=== PATIENT | male | born 1990 | race Caucasian/White ===

== ENCOUNTER 2023-12-20 19:44 | Emergency (ER) | payer OTHER, SELFPAY ==
[2023-12-20 19:48] VITALS: BP 149/115; PULSE 120; RESP 16; TEMP 36.9; O2SAT 98
--- NOTE | 2023-12-20 20:17 | ED.GENADUL_ITS ---
Discharge Plan Discharge Details Chief Complaint: Anxiety ED Provider: Gloria Gutierrez Home Meds and New Rx's Prescriptions: No Action aripiprazole [Abilify] 20 mg tablet 20 mg PO DAILY divalproex [Depakote] 500 mg tablet,delayed release (DR/EC) 500 mg PO BID Viagra 25 mg PO QWEEK [facility] General Mode of arrival: ambulatory . Date/Time Provider Initiated Documentation: 12/20/23 19:45 . Limitations to Documentation: no limitations . Information obtained by: patient, RN notes reviewed and old records reviewed . HPI Narrative: 33 year old male who presents to ED accompanyied by Police who is requesting medications, he reports he needs his depakote which he has been off of for over a week. He reports he was speeding and is displaying manic behaviors. He denies SI, HI, reports trouble sleeping. He states he slept approximately 3-4 hours this am. Denies alcohol or drugs, endorses vaping. Denies pain, WHITESIDE, blurry vision or any other associated symptoms. Related Data Home Medications Medication Instructions Recorded Confirmed Viagra 25 mg PO QWEEK 12/20/23 12/20/23 aripiprazole 20 mg tablet (Abilify) 20 mg PO DAILY 12/20/23 12/20/23 divalproex 500 mg tablet,delayed 500 mg PO BID 12/20/23 12/20/23 release (Depakote) General Stated Complaint: Anxiety MAINE: 4 Review of Systems All systems reviewed & are unremarkable except as noted in HPI and below Neurologic Neurologic: Reports behavioral changes Psychiatric Psychiatric: Reports abnormal sleep pattern, Reports behavioral changes, Denies homicidal ideation and Denies suicidal ideation Exam Narrative Exam Narrative: Constitutional: Alert and oriented x3. Appears stated age. Normal body habitus. Head: Normocephalic, no trauma. Eyes: Pupils PERRL, Red reflex noted, EOM's intact. Eyelids symmetrical without lesions, discharge, or swelling. Chest: RRR, Normal S1, S2, distal pulses intact. Resp: Lungs clear to auscultation bilaterally, no wheezes, rales, or rhonchi. Abdomen: Soft, non-distended, Normoactive bowel sounds all 4 quads. Musculoskeletal: Normal gait, 5/5 strength to all four extremities. Skin: No suspicious rashes or lesions. Capillary refill less than 2 sec. Neurologic: Cranial nerves II-XII intact. Alert and oriented x 3. Motor: No deficits noted. Sensory: Intact bilaterally all 4 extremities. Reflexes: DTR's intact bilaterally.. Hematologic/Lymphatic: No ecchymosis, no lymphadenopathy. Course Vital Signs Vital signs: Vital Signs Temperature 36.9 C 12/20/23 19:48 Pulse 120 H 12/20/23 19:48 Respiratory Rate 16 12/20/23 19:48 Blood Pressure 149/115 H 12/20/23 19:48 Pulse Oximetry 98 12/20/23 19:48 Temperature 36.9 C 12/20/23 19:48 Temperature Source Temporal Artery Scan 12/20/23 19:48 Pulse 120 H 12/20/23 19:48 Respiratory Rate 16 12/20/23 19:48 Blood Pressure 149/115 H 12/20/23 19:48 Blood Pressure Position Sitting 12/20/23 19:48 Pulse Oximetry 98 12/20/23 19:48 Oxygen Delivery Method Room Air 12/20/23 19:48 Oxygen Flow Rate 0 12/20/23 19:48 Pain Level 5 12/20/23 19:48 Comment Lower back pain. Chronic issue 12/20/23 19:48 Medical Decision Making 33 year old male who presents to ED accompanyied by Police who is requesting medications, he reports he needs his depakote which he has been off of for over a week. He reports he was speeding and is displaying manic behaviors. He denies SI, HI, reports trouble sleeping. He states he slept approximately 3-4 hours this am. Denies alcohol or drugs, endorses vaping. Denies pain, WHITESIDE, blurry vision or any other associated symptoms. UDS ordered and mental health consultation. 2058: Spoke with [facility] mental health psych liachiara Mireles, she reports that patient is willing to go voluntary at this time, if he tries to leave and at any time becomes involuntary, to call them and they will EE him. Reports that patient has been driving from [place], to [place] and staying with his step Father in [facility][note 2], has displayed behaviors suggesting external and internal stimuli, heard talking to himself per BEHZAD barnes. Hx of PTSD, Bipolar, schizophrenia, anxiety, with history of 3 prior admissions. Patient placed in paper scrubs and will be moved to Zone B. Given a sandwich. Patient is agreeable to an ativan and requesting an ibuprofen. Orders placed, we were able to acquire a medication list, Depakote and abilify, diet and vital signs ordered. Care is to be handed off to oncoming provider Gale Parson MD pending voluntary placement. Quality:[facility] Health Related Social Needs: No Data to Display [facility] Social History Smoking risk assessment performed?: No Substance use type: does not use Housing: house Do you feel safe at home: No Do you feel safe in your relationship?: No Additional Social history: suffers from paranoia. Sign Out Sign Out Data: Sign Out Comment: Voluntary placement, here with manic behaviors and off medications. History of Bipolar, schizophrenia, and PTSD. Drove here from [place], arrested for speeding. Denies SI or HI. Has been evaluated by [facility]. Last updated by Gloria Gutierrez NP at 12/20/23 21:48
[2023-12-20 21:07] VITALS: PULSE 115
[2023-12-20] MEDS: Ibuprofen 600 MG TAB PO (21:14)
[2023-12-20] MEDS: LORazepam 1 MG TAB PO (21:14)
--- NOTE | 2023-12-20 21:31 | NUR.NOTE ---
transferred to zone b, psychiatric specialty zone of ED, compliant without incident, changed into paper scrubs, belongings locked and tucked away according to policy/procedure, requested to shower, personal hygiene items given and assisted to the shower room, allowed to shower unsupervised, continues to deny SI/HI/SA/WHITESIDE, does state he knows he is manic and manic state I need to sleep, I think that would help my thought process, c/o low back pain, reports this as chronic in nature, medications given for pain and anxiety as ordered.
[2023-12-20 21:51] LABS: *AMPHETAMINES SCREEN URINE Negative (Negative); *BARBITURATES SCREEN URINE Negative (Negative); *BENZODIAZEPINES SCREEN URINE Negative (Negative); Cannabinoids THC Positive (Negative); Cocaine Screen,Urine Negative (Negative); METHADONE URINE SCREEN Negative (Negative); OPIATES URINE SCREEN Negative (Negative)
[2023-12-20 21:52] LABS: Tricyclic Antidepressants Negative (Negative)
[2023-12-20] MEDS: Divalproex 500 MG TABEC PO (22:02)
--- NOTE | 2023-12-20 22:35 | W.EDPROG ---
Date of service: 12/20/23 Time of Service: 22:35 Medical Decision Making This patient was signed out to me. Please see previous notes for H&P and initial eval. In brief, 33yo M with hx bipolar presenting voluntarily for rolando, has not taken his medication for ~ 1 week. BEHZAD recommended inpatient treatment, felt that patient likely meets EE criteria should he no longer wish to remain on a voluntary basis. Tachycardiac though to be 2/t activity/anxiety. Medically cleared, home meds ordered. Plan for re-eval in the morning, inpatient treatment pending placement. Overnight patient slept for several hours. Requested nicotine replacement which was ordered. Signed out to oncoming physician, plan remains voluntary inpatient placement pending re-eval and bed availability. Quality:[facility] Health Related Social Needs: No Data to Display Sign Out Sign Out Data: Sign Out Comment: Voluntary placement, here with manic behaviors and off medications. History of Bipolar, schizophrenia, and PTSD. Drove here from [place], arrested for speeding. Denies SI or HI. Has been evaluated by BEHZAD. Last updated by Gloria Gutierrez NP at 12/20/23 21:48 Sign Out Comment: 33yo M, bipolar/schizophrenia, rolando after stopping medications. Voluntary, [facility] inpatient. No behavioral issues. Pending placement. Last updated by Carla Parson MD at 12/21/23 06:30 Discharge Plan Discharge Details Chief Complaint: Anxiety Primary Care Provider: Marilyn,Local ED Provider: Carla Parson Home Meds and New Rx's Prescriptions: No Action aripiprazole [Abilify] 20 mg tablet 20 mg PO DAILY divalproex [Depakote] 500 mg tablet,delayed release (DR/EC) 500 mg PO BID Viagra 25 mg PO QWEEK
[2023-12-21] MEDS: Acetaminophen 325 MG TAB 650 MG PO (05:25)
[2023-12-21] MEDS: Nicotine 4 MG LOZG SUC ×2 (05:52→22:05)
--- NOTE | 2023-12-21 06:47 | NUR.NOTE ---
Assumed care of PT. PT in NADNursing Note:
--- NOTE | 2023-12-21 07:15 | ED.PROG_ITS ---
Date of service: 12/21/23 Time of Service: 07:15 Medical Decision Making Patient seeking voluntary placement for decompensated bipolar, no issues reported on previous shift, currently calm and cooperative with no new acute complaints. Will continue to monitor until safe disposition found Quality:[facility] Health Related Social Needs: No Data to Display Sign Out Sign Out Data: Sign Out Comment: Voluntary placement, here with manic behaviors and off medications. History of Bipolar, schizophrenia, and PTSD. Drove here from [place], arrested for speeding. Denies SI or HI. Has been evaluated by BEHZAD. Last updated by Gloria Gutierrez NP at 12/20/23 21:48 Sign Out Comment: 33yo M, bipolar/schizophrenia, rolando after stopping medications. Voluntary, [facility] inpatient. No behavioral issues. Pending placement. Last updated by Carla Parson MD at 12/21/23 06:30 Discharge Plan Discharge Details Chief Complaint: Anxiety Primary Care Provider: Marilyn,Local ED Provider: Newton Pradhan Home Meds and New Rx's Prescriptions: No Action aripiprazole [Abilify] 20 mg tablet 20 mg PO DAILY divalproex [Depakote] 500 mg tablet,delayed release (DR/EC) 500 mg PO BID Viagra 25 mg PO QWEEK
[2023-12-21] MEDS: Polyethylene Glycol 3350 17 GM PACKET PO (08:31)
[2023-12-21] MEDS: Nicotine 21 MG/24 HR PATCH TD (08:31)
[2023-12-21] MEDS: LORazepam 1 MG TAB PO (08:31)
[2023-12-21] MEDS: ARIPiprazole 5 MG TAB 20 MG PO (08:31)
[2023-12-21] MEDS: Docusate Sodium 100 MG CAP PO (08:31)
--- NOTE | 2023-12-21 13:27 | CMSP_ITS ---
Date of service: 12/21/23 Time of Service: 13:27 Care Management Safety Plan Status Status: Voluntary Reason for Wait Reason for Wait: Inpatient Admission Safety Plan Safety Plan: VOLUNTARY FOR INPATIENT PSYCHIATRIC STABILIZATION.? Patient is appropriate in all interactions since arriving at [facility]; Pt has demonstrated appropriate coping and communication skills, has articulated his needs and concerns and is fully engaged during staff interactions. Safety plan has been established with patient, and care team, to adhere to patient goals, identify restrictions based on behavioral status, address nutrition, and determine allowed personal belongings, tools for hygiene and personal care. Determine level of activity including ambulation, level of supervision, visitors, and determine privileges based on behaviors and level of engagement by pt. SAFETY PLAN: 1. Will remain on suicide precautions, in paper clothes 2. Will remain in Zone B under direct supervision of one-on-one staff at all times provided by [employer]; TERRI, TWISTING FRAME CHANGER [id number] [id number] armor crewman. 3. May have paper cups, plates, finger foods as well as a cardboard spoon with which to eat meals. 4. Follow [facility] Management of the Admitted Behavioral Health Patient policy. 5. Shower available in Zone B without restriction. 6. Personal belongings-soft items permitted at RN discretion. 7. Visitors-none at this time. 8. Activities: soft cart items approved per RN discretion. 9.? Bathroom available in Zone B without restriction. 10. Phone: limited to [facility] cordless phone at RN discretion. Due to VOLUNTARY status, if patient wishes to leave [facility], staff will contact [facility] Crisis Screener ([phone]) and Airline Transport Pilot ([phone]) as soon as possible. In the event of elopement, notify [facility] Police ([phone]). Patient is currently voluntarily at [facility] and seeking inpatient admission when a bed becomes available. [facility] Frontline Business Partner will continue seeking p lacement. Please contact the Airline Transport Pilot ([phone]) and [facility] Business Partner ([phone]) for any needed changes in the Safety Plan. Safety plan has been provided to interdepartmental care team.
--- NOTE | 2023-12-21 13:27 | PDOC.CMSAFE ---
Date of service: 12/21/23 Time of Service: 13:27 Care Management Safety Plan Status Status: Voluntary Reason for Wait Reason for Wait: Inpatient Admission Safety Plan Safety Plan: VOLUNTARY FOR INPATIENT PSYCHIATRIC STABILIZATION.? Patient is appropriate in all interactions since arriving at [facility]; Pt has demonstrated appropriate coping and communication skills, has articulated his needs and concerns and is fully engaged during staff interactions. Safety plan has been established with patient, and care team, to adhere to patient goals, identify restrictions based on behavioral status, address nutrition, and determine allowed personal belongings, tools for hygiene and personal care. Determine level of activity including ambulation, level of supervision, visitors, and determine privileges based on behaviors and level of engagement by pt. SAFETY PLAN: 1. Will remain on suicide precautions, in paper clothes 2. Will remain in Zone B under direct supervision of one-on-one staff at all times provided by [employer]; TERRI, ICHTHYOLOGY TEACHER ultrasonic welding machine operator. 3. May have paper cups, plates, finger foods as well as a cardboard spoon with which to eat meals. 4. Follow [facility] Management of the Admitted Behavioral Health Patient policy. 5. Shower available in Zone B without restriction. 6. Personal belongings-soft items permitted at RN discretion. 7. Visitors-none at this time. 8. Activities: soft cart items approved per RN discretion. 9.? Bathroom available in Zone B without restriction. 10. Phone: limited to [facility] cordless phone at RN discretion. Due to VOLUNTARY status, if patient wishes to leave [facility], staff will contact [facility] Crisis Screener ([phone]) and Phytopathologist ([phone]) as soon as possible. In the event of elopement, notify [facility] Police ([phone]). Patient is currently voluntarily at [facility] and seeking inpatient admission when a bed becomes available. [facility] Frontline Data Processing Manager will continue seeking placement. Please contact the Phytopathologist ([phone]) and [facility] Data Processing Manager ([phone]) for any needed changes in the Safety Plan. Safety plan has been provided to interdepartmental care team.
--- NOTE | 2023-12-21 15:47 | W.EDPROG ---
Date of service: 12/21/23 Time of Service: 15:47 Medical Decision Making Care assumed from provider (likely EDMD) Please see their initial HPI, PE, and documentation. Discussed patient details and case and pending workup and disposition. Patient is hemodynamically stable, and alert and oriented. At time of signout awaiting voluntary psychiatric placement. No issues reported during the night. He has been calm and cooperative. 1647: Spoke with Dr. Chan. Roni Gaming is the attending and accepting physician at [facility] who reccommends CBC, CMP, TSH And a Covid PCR, she requests Fax of results to [phone] she reports they will most likely agree to accept patient tomorrow, Lab results faxed by dental secretary, patient has remained calm and cooperative throughout remainder of stay. Care is to be handed off to oncoming provider Bonita Parson MD, pending disposition. This text was generated using [employer] dictation system, please disregard any oddities of phrase or misspellings. Lab Data Lab results reviewed: Yes I reviewed the patient's lab results. Labs: Laboratory Tests Range/Units 12/20/23 12/21/23 21:15 17:04 WBC (4.4-10.8) 10^3/uL 9.73 RBC (4.36-5.78) 10^6/uL 4.60 Hgb (13.5-17.5) g/dL 14.5 Hct (40.0-50.0) % 43.3 MCV (80-95) fL 94 MCH (27.0-33.0) pg 31.5 MCHC (32.0-36.0) % 33.5 RDW (11.8-14.1) % 12.5 Plt Count (130-400) 10^3/uL 302 MPV (8.0-11.0) fL 8.8 Immature Gran % 0.2 Neutrophils % 52.9 Lymphocytes % 36.5 Monocytes % 7.7 Eosinophils % 2.4 Basophils % 0.3 Nucleated RBC % (0.0-0.3) % 0.0 Absolute Neutrophils (1.2-6.7) 10^3/uL 5.15 Absolute Lymphocytes (1.2-3.4) 10^3/uL 3.55 H Absolute Monocytes (0.1-0.8) 10^3/uL 0.75 Absolute Eosinophils (0.0-0.7) 10^3/uL 0.23 Absolute Basophils (0.0-0.2) 10^3/uL 0.03 Sodium (136-145) mmol/L 141 Potassium (3.5-5.1) mmol/L 3.5 Chloride (98-107) mmol/L 101 Carbon Dioxide (21.0-32.0) mmol/L 31.7 Anion Gap (3-11) mmol/L 8.3 BUN (7-18) mg/dL 14 Creatinine (0.70-1.30) mg/dL 1.0 Est GFR (CKD-EPI 2020) (mL/min/1.73m2) 100.66 Glucose (74-106) mg/dL 100 Calcium (8.5-10.1) mg/dL 8.9 Total Bilirubin (0.2-1.0) mg/dL 0.3 AST (15-37) U/L 20 ALT (16-63) U/L 23 Alkaline Phosphatase (46-116) U/L 65 Total Protein (6.4-8.2) g/dL 7.1 Albumin (3.4-5.0) g/dL 3.5 TSH (0.36-3.74) uIU/mL 0.71 Urine Opiates Screen (Negative) Negative Urine Methadone Screen (Negative) Negative Ur Barbiturates Screen (Negative) Negative Ur Tricyclics Screen (Negative) Negative Ur Amphetamines Screen (Negative) Negative U Benzodiazepines Scrn (Negative) Negative Urine Cocaine Screen (Negative) Negative Ur THC Screen (Negative) Positive A COVID-19 Source Nasal/Nares SARS-CoV-2 (PCR) (Negative) Negative Quality:[facility] Health Related Social Needs: No Data to Display Sign Out Sign Out Data: Sign Out Comment: Voluntary placement, here with manic behaviors and off medications. History of Bipolar, schizophrenia, and PTSD. Drove here from [place], arrested for speeding. Denies SI or HI. Has been evaluated by BEHZAD. Last updated by Gloria Gutierrez NP at 12/20/23 21:48 Sign Out Comment: 33yo M, bipolar/schizophrenia, rolando after stopping medications. Voluntary, [facility] inpatient. No behavioral issues. Pending placement. Last updated by Carla Parson MD at 12/21/23 06:30 Sign Out Comment: voluntary for rolando and hx of bipolar and schizophrenia per sign out, no issues during shift Last updated by Newton Pradhan MD at 12/21/23 13:32 Sign Out Comment: Awaiting voluntary psychiatric admission. Has remained calm and cooperative throughout stay, is receiving Depakote and Abilify. Spoke with [facility] and they requested labs and a covid PCR test which was done and faxed by community relations coordinator. Expected dispo is admission to [facility] tomorrow. Last updated by Gloria Gutierrez NP at 12/21/23 22:45 Discharge Plan Discharge Details Chief Complaint: Anxiety Primary Care Provider: Marilyn,Local ED Provider: Gloria Gutierrez Home Meds and New Rx's Prescriptions: No Action aripiprazole [Abilify] 20 mg tablet 20 mg PO DAILY divalproex [Depakote] 500 mg tablet,delayed release (DR/EC) 500 mg PO BID Viagra 25 mg PO QWEEK
[2023-12-21 17:16] LABS: Source Nasal/Nares
[2023-12-21 17:19] LABS: Abs Immature Grans 0.02 10^3/uL (0.0-0.06); Absolute Basophil Count 0.03 10^3/uL (0.0-0.2); Absolute Eosinophil Count 0.23 10^3/uL (0.0-0.7); Absolute Lymphocyte Count 3.55 10^3/uL (1.2-3.4); Absolute Monocyte Count 0.75 10^3/uL (0.1-0.8); Absolute Neutrophil Count 5.15 10^3/uL (1.2-6.7); Basophils % 0.3; Eosinophils % 2.4; HCT 43.3 % (40.0-50.0); HGB 14.5 g/dL (13.5-17.5); Immature Grans % 0.2; Lymphocytes % 36.5; MCH 31.5 pg (27.0-33.0); MCHC 33.5 % (32.0-36.0); MCV 94 fL (80-95); MPV 8.8 fL (8.0-11.0); Monocytes % 7.7; Neutrophils % 52.9; Platelet Count 302 10^3/uL (130-400); RDW 12.5 % (11.8-14.1); WBC 9.73 10^3/uL (4.4-10.8)
[2023-12-21 17:41] LABS: ALT 23 U/L (16-63); AST 20 U/L (15-37); Albumin 3.5 g/dL (3.4-5.0); Alkaline Phosphatase 65 U/L (46-116); Anion Gap 8.3 mmol/L (3-11); BUN 14 mg/dL (7-18); Bilirubin, Total 0.3 mg/dL (0.2-1.0); CO2 31.7 mmol/L (21.0-32.0); Calcium 8.9 mg/dL (8.5-10.1); Chloride 101 mmol/L (98-107); Estimated GFR 100.66 (mL/min/1.73m2); Glucose 100 mg/dL (74-106); Potassium 3.5 mmol/L (3.5-5.1); Sodium 141 mmol/L (136-145); TSH (W/Ref FT4) 0.71 uIU/mL (0.36-3.74); Total Protein 7.1 g/dL (6.4-8.2)
[2023-12-21 17:47] LABS: COVID-19 PCR Negative (Negative)
[2023-12-21] MEDS: Divalproex 500 MG TABEC PO (21:41)
--- NOTE | 2023-12-21 22:41 | PDOC.MHPN2 ---
Date of service: 12/21/23 Time of Service: 11:00 Mental Health Emergency Note Release [facility] release signed:: Yes Reason for Visit According to [facility] Sh[facility]'s note on 12/20/2023: Client is not known to the agency. Assessment started at [facility] and finished at [facility] ED due to the clients interest in getting additional support. Client was taken into police custody after being picked up for driving 96 M[address] in [facility]. Officers saw that the client had an active missing persons report against him and was taken into custody. Client agreed last evening to voluntary treatment. This curriculum writer assesses the client via telehealth for re-assessment. In the last 2 weeks has the pt presented for ES prior to today?: No Impression Per [facility] Sh[facility]'s note 12/20/2023: Client Is originally from the state of [place]. Client approximately left on the or the November after trading in his car due to paranoia of being followed. Client then left the state of [place] to go to the [facility] that day to stay with an uncle. Client continued to exhibit symptoms of paranoia due to wanting to hide his car and proceeding to leave in the middle of the night. Client then left his uncle's house to drive to his stepfather's house in the [facility]. Client then stayed with his stepfather from Saturday to Saturday where he continued to exhibit symptoms of paranoia from breaking five to six different phones due to thinking he was being tracked. In addition to continuing to hide his transportation. Client was also observed to be responding to some form of internal or external stimuli. Client then left his stepfather's house in the middle of the night Saturday or early Saturday morning. Client stepfather then proceeded to file a missing person's report. Client was picked up by [facility] Police due to driving [address] in the [facility] area. Client then lead police on a high speed anna marie for about 3 to 5 minutes before abruptly turning off of the road, pulling over, parking the car and then getting out of the car with his hands up. During assessment last night at [facility] the client agreed to be transported to [facility] ED to seek voluntary treatment. This curriculum writer re-assesses the client via telehealth at [facility] ED. The client is sitting in the day room of zone B at [facility] watching television. The client is cooperative with assessment, however gives minimal eye contact as it appears that he is focusing on something else in the room. The client reports that he is diagnosed with bi-polar and PTSD and has been in a manic state not eating or sleeping for the last week. The client reports that he is a after serving in the [employer] and being discharged in 2011. The client [facility] [place]. The client denies SI/HI as well as intent and plan. The client still agrees to voluntary inpatient treatment. Plan/Disposition Recommended Disposition: Hospitalization facilities contacted. Plan: The client will remain at [facility] ED on voluntary status pending placement in an inpatient facility. The client will be re-assessed daily by [facility] until placement is secured. This curriculum writer [facility] and [facility], they are anticipating to accept the client tomorrow for admission. Person reported agreement to plan: Yes Facilities contacted if Applicable Other: Other ([facility]) not accepted (Anticipating to accept for admission tomorrow. ) No bed available Reports/communication Outcome discussed with: ED/Personnel (Verbal passover given to ED staff. )
--- NOTE | 2023-12-21 22:53 | ED.PROG_ITS ---
Date of service: 12/21/23 Time of Service: 23:05 Medical Decision Making This patient was signed out to me. Please see previous notes for H&P and initial eval. In brief, 33yo with hx PTSD/bipolar/schizophrenia presenting voluntarily with rolando. Medically cleared, anticipated acceptance to [facility] tomorrow morning. Overnight no acute events. Signed out to oncoming physician, plan remains as above. 12/21 15: 31 patient resting comfortably no acute distress. Physician to physician signout given to Dr. Durán at [facility], patient has been accepted for transfer. Quality:[facility] Health Related Social Needs: No Data to Display Sign Out Sign Out Data: Sign Out Comment: Voluntary placement, here with manic behaviors and off medications. History of Bipolar, schizophrenia, and PTSD. Drove here from [place], arrested for speeding. Denies SI or HI. Has been evaluated by [facility]. Last updated by Gloria Gutierrez NP at 12/20/23 21:48 Sign Out Comment: 33yo M, bipolar/schizophrenia, rolando after stopping medications. Voluntary, [facility] inpatient. No behavioral issues. Pending placement. Last updated by Carla Parson MD at 12/21/23 06:30 Sign Out Comment: voluntary for rolando and hx of bipolar and schizophrenia per sign out, no issues during shift Last updated by Newton Pradhan MD at 12/21/23 13:32 Sign Out Comment: Awaiting voluntary psychiatric admission. Has remained calm and cooperative throughout stay, is receiving Depakote and Abilify. [facility] and [facility] covid PCR test which was done and faxed by community representative. Expected dispo is admission to [facility] tomorrow. Last updated by Gloria Gutierrez NP at 12/21/23 22:45 Sign Out Comment: 33yo M bipolar/PTDS/schizophrenia, rolando, voluntary, medical cleared. [facility]. Last updated by Carla Parson MD at 12/22/23 07:24 Discharge Plan Disposition Patient Disposition: Psychiatric Hospital/Unit Specific Psychiatric Facility: Other Condition: Stable Discharge Details Chief Complaint: Anxiety Clinical Impression: Mental health disorder Primary Care Provider: No,Local ED Provider: Quan Champion Home Meds and New Rx's Prescriptions: No Action aripiprazole [Abilify] 20 mg tablet 20 mg PO DAILY divalproex [Depakote] 500 mg tablet,delayed release (DR/EC) 500 mg PO BID Viagra 25 mg PO QWEEK
[2023-12-22] MEDS: Ibuprofen 400 MG TAB PO ×2 (03:53→11:14)
[2023-12-22] MEDS: Acetaminophen 325 MG TAB 650 MG PO ×2 (03:53→08:15)
[2023-12-22] MEDS: Divalproex 500 MG TABEC PO (08:15)
[2023-12-22] MEDS: ARIPiprazole 5 MG TAB PO (08:15)
[2023-12-22 08:27] VITALS: BP 132/82; PULSE 108; RESP 16; TEMP 36.6; O2SAT 98
[2023-12-22] MEDS: Nicotine 21 MG/24 HR PATCH TD (08:32)
[2023-12-22] MEDS: Nicotine 4 MG LOZG SUC (10:32)
--- NOTE | 2023-12-22 10:45 | RT.EKG_ITS ---
APPROVED REPORT Exam: Resting ECG Reason for Exam: psych Patient Location: E HR:109 bpm ECG Measurements Heart Rate 109 AXIS RI 169 P 53 QRSd 79 QRS 54 QT 316 T 14 QTc 425 Conclusion Sinus tachycardia...rate> 99 Probable left atrial enlargement...P >50mS, <-0.10mV V1 ST elev, probable normal early repol pattern...ST elevation, age<55 sinus tachycardia, normal axis, normal intervals, non ischemic
[2023-12-22 17:30] VITALS: BP 137/88; PULSE 107; RESP 14; TEMP 36.8; O2SAT 98
--- NOTE | 2023-12-23 13:11 | CMDISCH_ITS ---
Date of service: 12/23/23 Time of Service: 13:11 Care Management Discharge Plan Reason for Hospitalization: mental health evaluation Discharge Plan: Tej will be transferred to [facility] in [place]. He will transport via [facility]. SDOH Health Related Social Needs: No Data to Display MH Services (Omit if N/A) Current MH Services: Other Disposition Transport via of: [facility]
== END 2023-12-22 18:15 ==
PROVIDERS: Registered Nurse Emergency; Emergency Provider Emergency Medicine
DX: F41.9 Anxiety disorder, unspecified (principal); F31.9 Bipolar disorder, unspecified; T42.6X6A Underdosing of other antiepileptic and sedative-hypnotic drugs, initial encounter; Z11.52 Encounter for screening for COVID-19; Z91.138 Patient's unintentional underdosing of medication regimen for other reason
CPT/HCPCS: 00123; 80053; 80307; 87635; 93005; 99284; 84443; 85025; 93010